=== PATIENT | female | born 1985 | race Caucasian/White ===

== ENCOUNTER 2021-11-03 11:57 | Outpatient (CLI) | payer MEDICAID, SELFPAY ==
[2021-11-04 23:13] LABS: Rapid Plasma Reagin (RPR) Non Reactive (Non Reactive)
== END 2021-11-03 11:58 | disposition home or self-care (01) ==
PROVIDERS: Visit Provider Obstetrics & Gynecology
DX: Z34.93 Encounter for supervision of normal pregnancy, unspecified, third trimester (principal); Z3A.29 29 weeks gestation of pregnancy
CPT/HCPCS: 86592; 87086

== ENCOUNTER 2021-12-14 08:43 | Outpatient (CLI) | payer MEDICAID, SELFPAY ==
[2021-12-14 08:56] LABS: Glucose Fasting Check 80 mg/dl (60-115)
[2021-12-14 13:18] LABS: Glucose 1 Hour Gest 137 mg/dl (70-180)
[2021-12-14 13:18] LABS: Glucose GTT-Gestational 3 Hr 86 mg/dl (70-140)
== END 2021-12-14 08:44 | disposition home or self-care (01) ==
LOC: NFLDREF 08:43
PROVIDERS: Visit Provider Obstetrics & Gynecology
DX: Z34.90 Encounter for supervision of normal pregnancy, unspecified, unspecified trimester (principal)
CPT/HCPCS: 82951; 82952

== ENCOUNTER 2021-12-19 12:09 | Outpatient (CLI) | payer MEDICAID, SELFPAY ==
[2021-12-19 14:58] LABS: Amphetamine Screen Urine Negative (Negative); Barbiturate Screen Urine Negative (Negative); Benzodiazepines Screen Urine Negative (Negative); Cannabinoid Screen Urine Negative (Negative); Cocaine Screen Urine Negative (Negative); Methadone Screen Urine Negative (Negative); Methamphetamines Screen Urine Negative (Negative); Opiate Screen Urine Negative (Negative); Oxycodone Screen Urine Negative (Negative); Phencyclidine Screen Urine Negative (Negative); Tricyclic Antidepressant Urine Negative (Negative)
[2021-12-20 13:48] LABS: Strep B DNA Probe NEGATIVE (Negative)
== END 2021-12-19 12:10 | disposition home or self-care (01) ==
PROVIDERS: Visit Provider Obstetrics & Gynecology
DX: Z34.93 Encounter for supervision of normal pregnancy, unspecified, third trimester (principal); Z3A.35 35 weeks gestation of pregnancy
CPT/HCPCS: 80306; 87081; 87653

== ENCOUNTER 2021-12-29 09:47 | Outpatient (CLI) | payer MEDICAID, SELFPAY ==
--- NOTE | 2021-12-29 09:45 | CRLHL7_ITS ---
For Patients: As a result of the Century Cures Act, medical imaging exams and procedure reports are released immediately into your electronic medical record. You may view this report before your referring provider. If you have questions, please contact your health care provider. INDICATION: Third trimester scan, evaluate growth. SMALL FOR GESTATIONAL AGE COMPARISON: 09/01/2021 TECHNIQUE: Real time singh scale imaging of the fetus was performed as well as color Doppler and spectral Doppler analysis of the umbilical artery. FINDINGS: Sonographic imaging demonstrates a single living intrauterine gestation. Fetus demonstrates a regular cardiac rate of 139 beats per minute. Fetus has a vertex position. The placenta lies posteriorly. Amniotic fluid volume appears normal and there is a single deepest vertical pocket: 5.4 cm. The estimated weight is 3102gm which lies at the 58th %. On the prior OB ultrasound exam dated 09/01/2021 the estimated weight was at the 31st%. BPD 84th percentile. HC 82nd percentile. AC 68th percentile. FL 13th percentile. The HC/AC ratio measures 1.03 range (0.91-1.05). IMPRESSION: Sonographic gestational age 37 weeks 4 days and sonographic due date 01/15/2022. Sonographic age 4 days ahead of the clinical age. Estimated weight 58th percentile. Abdominal circumference 68th percentile. Dictated by Chuck Fuentes MD @ 12/29/2021 11:28:02 AM (Electronically Signed)
== END 2021-12-29 09:48 | disposition home or self-care (01) ==
PROVIDERS: Visit Provider Obstetrics & Gynecology
DX: O36.5930 Maternal care for other known or suspected poor fetal growth, third trimester, not applicable or unspecified (principal); Z3A.37 37 weeks gestation of pregnancy
CPT/HCPCS: 76816

== ENCOUNTER 2022-01-12 07:18 | Inpatient (IN) | payer MEDICAID, SELFPAY ==
[2022-01-12] VITALS (49 sets, daily range): BP systolic 93–137; BP diastolic 52–79; PULSE 68–100; RESP 18; TEMP 36.7–37.2; O2SAT 100; BMI 33.5
[2022-01-12] MEDS: miSOPROStoL 25 MCG/0.25 TABLET VAGINAL ×2 (08:21→11:44)
[2022-01-12 09:53] LABS: SARS PCR* Negative SARS-CoV-2 (Negative)
[2022-01-12] MEDS: LACTATED RINGERS 1000 ML 1,000 ML 735 ML IV (13:06)
[2022-01-12] MEDS: LIDOCAINE 2% (PF) 5 ML VIAL EPIDURAL ×2 (13:51→22:15)
[2022-01-12] MEDS: ROPIVACAINE 0.2% 100 ml 100 ML 12 MG EPIDURAL ×2 (13:51→20:26)
--- NOTE | 2022-01-12 14:14 | P.ANBPRC_ITS ---
[facility] Medical History (Updated 01/02/22 @ 15:53 by Mellissa Mora MD) Abnormal glucose tolerance test (GTT) Delivery normal Encounter for screening examination for sexually transmitted disease Encounter for supervision of other normal , third trimester First trimester bleeding GERD (gastroesophageal reflux disease) Headache History of cholecystitis Meconium stained amniotic fluid, delivered, current hospitalization Normal delivery at term care following vaginal delivery Small for dates fetus [id number] fetus, third trimester Smoker (02/13/12) Subchorionic hematoma in first trimester Threatened Surgical History (Updated 11/03/21 @ 17:10 by Mellissa Mora MD) History of laparoscopic cholecystectomy (08/11/21) History of third molar tooth extraction Family History (Updated 10/28/21 @ 10:49 by Frantz Thornton) Father Alcoholism Diabetes Other GERD (gastroesophageal reflux disease) Social History (Updated 11/03/21 @ 17:11 by Mellissa Mora MD) Narrative: Single mother Non-smoker Employment: [employer] Smoking Status: Never smoker Meds Home Medications and Allergies Home Medications Medication Instructions Recorded Confirmed Type docosahexaenoic acid 200 mg 200 mg PO DAILY 11/03/21 01/12/22 History capsule ( DHA) Allergies Allergy/AdvReac Type Severity Reaction Status Date / Time No Known Allergies Allergy Verified 01/12/22 12:32 Results Labs Labs: Laboratory Results - last 24 hr 01/12/22 08:55 SARS-CoV-2 (PCR) Negative SARS-CoV-2 Vital Signs Vital Signs: Last Vital Signs Temp 98.1 F 01/12/22 07:52 Pulse 85 01/12/22 14:09 Resp 18 01/12/22 07:52 BP 110/60 01/12/22 14:09 Pulse Ox 100 01/12/22 14:00 Weight: 87.362 kg Height: 161.29 cm Anesthesia Procedures Epidural Insertion Patient Location: OB Start Time: 13:15 Stop Time: 14:15 Start Date: 01/12/22 Stop Date: 01/12/22 Performed By: Yeimi Jansen Preanesthetic Checklist: IV checked, site marked, risks and benefits discussed, monitors and equipment checked, pre-op evaluation, timeout performed and anesthesia consent Prep: chlorhexidine gluconate Monitoring: blood pressure monitoring, continuous pulse oximetry and heart rate Approach: midline Vertebral Space: lumbar (1-5) Epidural Technique: DEREJE saline Needle Type: Tuohy needle Injection Technique: continuous catheter Needle gauge: 17 Needle Length (cm): 10 cm Needle Insertion Depth (cm): 7 Catheter Gauge: 19 Catheter Type: multi-orifice Catheter at skin depth (cm): 15 Test Dose Result: negative and lidocaine 1.5% with epinephrine 1 to 200,000
[2022-01-12] MEDS: LACTATED RINGERS 1000 ML 1,000 ML 200 ML IV ×2 (15:36→20:56)
--- NOTE | 2022-01-12 16:23 | P.OBHP_ITS ---
OB - H&P: HPI Labor/Induction History of Present Illness Time Seen by Provider: 08:00 Date Seen: 01/12/22 Chief Complaint: The patient is a 36 year old 6 para 3023 at 39 weeks 0 days, who presents for elective induction of labor. Patient was 2/25/-2 on admission. No regular contractions. Denies LOF. She was counseled by Dr. Guero Davis yesterday and myself again today that there is Pitocin shortage. We will use misoprostol and AROM as our induction method. She asked about tubal ligation however she did not sign the Medicaid the sterilization consent form as she did not know about it. She was initially very upset but understands that I can not perform the procedure without the appropriate protocol being followed. We discussed other options for reliable control methods. She states that she will think about them later. Miso#1 was placed at approx 8:30. She remained unchanged after 3 hours Miso#2 was placed at approx 11:30. Patient is comfortable w/ epidural and barak regularly every 2-3 minutes. She was AROM at 1615 when patinet was noted to be 4/50/-2 Vital signs: Per electronic medical record. EFM: Baseline 130s, positive accelerations, rare decelerations, moderate variability, reactive. [place]: Contractions every 2-3 minutes. Patient still in latent labor. She is barak frequently and was reporting 7 to 8/10 pain prior to epidural. Chief complaint: Maternity : 6 Para: 3 Narrative: Cat Rodríguez is a 36 year old female Meds Home Medications and Allergies Home Medications Medication Instructions Recorded Confirmed Type docosahexaenoic acid 200 mg 200 mg PO DAILY 11/03/21 01/12/22 History capsule ( DHA) Allergies Allergy/AdvReac Type Severity Reaction Status Date / Time No Known Allergies Allergy Verified 01/12/22 12:32 OB - H&P: Exam Physical Exam: Vital signs: Temp Pulse Resp BP Pulse Ox 98.1 F 71 18 107/57 L 100 01/12/22 07:52 01/12/22 16:11 01/12/22 07:52 01/12/22 16:11 01/12/22 14:00 OB - Problem Based A/P Additional Plan (1) Abnormal glucose tolerance test (GTT): Status: Acute (2) Headache: Status: Acute (3) GERD (gastroesophageal reflux disease): Status: Acute (4) Persistent insomnia: Status: Acute (5) Neck pain: Status: Acute (6) Mild traumatic brain injury: Status: Acute (7) Attention deficit hyperactivity disorder (ADHD): Status: Acute (8) Arthropathy of lumbosacral facet joint: Status: Acute (9) Arnold-Chiari malformation, type I: Status: Acute (10) Anxiety: Status: Acute (11) : Status: Acute Plan Expected Delivery Route/Plan Elective IOL at 39w0d: 01/12/22. Patient is having a friend fly into town from [place] to be her support person. H&P by NDP on 12/29/21 Specific Issues/Plans Blood type:?A positive Father of baby not involved. Has 3 boys: Audie Cortes Sawyer. Baby: Boy. 1.? Chronic persistent insomnia. Patient reports is secondary to her Chiari Type 1 malformation at 1st OB was using trazodone 200mg qhs, recommend? tapering to DC off trazone. * 09/01/21: vistaril for persistent insomnia * 11/03/21: Increased vistaril to 100mg QHS * 11/03/2021:? Benadryl, Unisom increase restlessness.? Melatonin did not work. 2. Chiari Type 1 malformation 3. BMI 30.2 Hemoglobin A1c:? 5.0% 11/03/2021 1 hour GTT:? 153 12/14/2021 3hr GTT: All normal. 4. Laparoscopic cholecystectomy 08/11/2021 * Pathology:? Low-grade dysplasia, benign cystic duct lymph node * Has had low appetite since surgery 5. 11/03/21: Headache: Every day to every other day. Tylenol does not help * ?start magnesium supplement 400/500 mg p.o. q.h.s. 6. ? 11/03/2021 elevated 1 hour GTT: 153 * ?requested to check glucose q.i.d. rather than 3 hour GTT. (Pt later opted to complete testing, see results below) * 12/14/2021 3hr GTT: All normal. 7. 11/02/2021:? Grandfather in a car accident * ?offered SSRI: the patient declined 8. 12/19/2021:? Measuring small for dates * 12/29/2021 USN: Vtx. SDP 5.4cm.? EFW:? 3102 g, 6 lb 13 oz, 58%.? BPD 84%, HC 82%, AC 60%, FL 13%
[2022-01-12] MEDS: hydrOXYzine pamoate 25 MG CAPSULE 100 MG PO (18:07)
[2022-01-12] MEDS: OXYTOCIN 30 unit/500 ML in NS 30 UNIT/500 ML BAG IVPB (21:01)
--- NOTE | 2022-01-12 21:04 | PM.OBPNL ---
Subjective Time Seen by Provider: 21:05 Date Seen: 01/12/22 Narrative: Subjective: Patient is comfortable w/ epidural. Vital signs: Per electronic medical record. EFM: Baseline 170s, positive accelerations, occasional decelerations, moderate variability. Category II. [place]: Contractions every 2 minutes. SVE: 5 cm/75 %/-2. Patient is making slow change. Additionally, there is new onset tachycardia intially in the 160s and now mantaining in 170s. Patient feels warm on SVE but has not had an official febrile episode. However, her clinically picture is concerning for developing chorioamnionitis. Plan: 1. 500 cc Bolus initiated 2. Will start Pitocin Objective Vital Signs: Last Vital Signs Temp 98.3 F 01/12/22 19:26 Pulse 73 01/12/22 21:00 Resp 18 01/12/22 07:52 BP 109/55 L 01/12/22 21:00 Pulse Ox 100 01/12/22 14:00
[2022-01-12] MEDS: ONDANSETRON 2 MG/ML inj 4 MG IV (23:15)
[2022-01-13] VITALS (22 sets, daily range): BP systolic 97–133; BP diastolic 53–88; PULSE 57–200; RESP 16–18; TEMP 36.4–37; O2SAT 97
[2022-01-13] MEDS: LACTATED RINGERS 1000 ML 1,000 ML 200 ML IV (00:09)
[2022-01-13] MEDS: ROPIVACAINE 0.2% 100 ml 100 ML 12 MG EPIDURAL (01:14)
--- NOTE | 2022-01-13 02:56 | PM.OBPRCVD ---
Procedure Delivery date: 01/13/22 Procedure Done: [employer] Procedure Details: The patient is a 36 year-old G 6 P 3023 admitted on January 12 at 39 and 0/7 weeks gestation for induction of labor. AROM occurred at 1600 on 01/12 with clear fluid. Labor Analgesia: Epidural Pitocin: Yes Labor onset: 01/12 at 1900 Complete: 01/13 at 0120 Pushin/7 at 0122 heart tones during second stage were cat II with intermittnent lated and variables as during . At 0230 a viable male infant delivered in vertex OA presentation over intact perineum via spontaneous vaginal delivery. Infant was placed on maternal abdomen. Cord was clamped and cut after pulsation no longer noted. Nose and mouth were bulb suctioned. Infant weight: Pending. 6 at 1 minute and 8 at 5 minutes. Shoulder dystocia: No. Nuchal cord: Yes/1 loop, easily reduced . Placenta delivered spontaneously and complete at 0240 with a 3 vessel cord. Complications: None. Mother and infant were stable after delivery. Laceration(s): None. Estimated blood loss: 100 mL. Sponge and needles counts are correct. Mother and were stable at the time of this note. Events: Labor Induction Induction method: per misoprostol protocol OB Vag Delivery Procedures Additional Procedures ECV: No Cook Catheter Insertion: No NST: Yes D&C: No Laceration Repair: No Tubal Ligation : No Other: No
[2022-01-13] MEDS: ACETAMINOPHEN 500 MG TABLET 1000 MG PO ×2 (03:32→10:22)
[2022-01-13] MEDS: IBUPROFEN 600 MG TABLET PO ×2 (08:14→15:46)
--- NOTE | 2022-01-13 08:50 | P.OBPN_ITS ---
OB - PN:Subj Subjective Time Seen by Provider: 08:51 Date Seen: 01/13/22 Interval history: HOSPITAL COURSE: Patient is a 36 year old, G 4 now P for admitted on 01/12/2022 at 39 Weeks, 0 Days gestation for elective induction of labor. She had an uncomplicated vagin al. She delivered a viable male . She is breast and bottle feeding. the patient has done well. Vitals have been stable. She has remained afebrile. She desires to be discharged home by 6 hours . Vital Signs: See EMR Discharge Examination GENERAL APPEARANCE: normal affect, alert, no distress MOOD: appropriate CHEST: clear to auscultation and percussion HEART: regular rate and rhythm ABDOMEN: soft, non-tender the uterine fundus is 1 cm Below Umbilicus, Midline and is appropriate for the stage of recovery. PERINEUM: mild edema of the perineum, there is a Periurethral Laceration [] degree that is healing well. EXTREMITIES: normal and no edema Discharge Criteria patient is ambulating without assistance, urinating without difficulty, tolerating a regular diet without n/v, and with [adequate pain control] with po medications. She is normotensive. Disposition: Home/Self Care She is requesting discharge home. OB - PN: Obj Exam Physical Exam: Vital signs: Temp Pulse Resp BP Pulse Ox 98.3 F 79 18 118/70 100 01/13/22 02:13 01/13/22 04:42 01/12/22 07:52 01/13/22 04:42 01/12/22 14:00 OB - PN: Obj Data Labs Labs: Laboratory Results - last 24 hr 01/12/22 08:55 SARS-CoV-2 (PCR) Negative SARS-CoV-2 OB - PN: A/P Vaginal Delivery Assessment and Plan (1) Abnormal glucose tolerance test (GTT): Status: Acute (2) Headache: Status: Acute (3) GERD (gastroesophageal reflux disease): Status: Acute (4) Persistent insomnia: Status: Acute (5) Neck pain: Status: Acute (6) Mild traumatic brain injury: Status: Acute (7) Attention deficit hyperactivity disorder (ADHD): Status: Acute (8) Arthropathy of lumbosacral facet joint: Status: Acute (9) Arnold-Chiari malformation, type I: Status: Acute (10) Anxiety: Status: Acute (11) : Status: Acute
[2022-01-13] MEDS: DOCUSATE SODIUM 100 MG CAPSULE PO (08:53)
== END 2022-01-13 17:22 | disposition home or self-care (01) | DRG 560 ==
PROVIDERS: Admitting Provider Obstetrics & Gynecology; PCP Physician Assistant Medical; Visit Provider Obstetrics & Gynecology
DX: O99.814 Abnormal glucose complicating childbirth (principal); O76 Abnormality in fetal heart rate and rhythm complicating labor and delivery; G93.5 Compression of brain; Z37.0 Single live birth; R51.9 Headache, unspecified; K21.9 Gastro-esophageal reflux disease without esophagitis; M54.2 Cervicalgia; O99.344 Other mental disorders complicating childbirth; F90.9 Attention-deficit hyperactivity disorder, unspecified type; F51.04 Psychophysiologic insomnia; F41.9 Anxiety disorder, unspecified; M47.816 Spondylosis without myelopathy or radiculopathy, lumbar region; Z3A.39 39 weeks gestation of pregnancy
CPT/HCPCS: 01967; 59200; 87635; A9270; J2405; J2795; J7120

== ENCOUNTER 2023-01-24 21:21 | Emergency (ER) | payer OTHER, SELFPAY ==
--- NOTE | 2023-01-24 22:38 | W.ED.CHARTNO ---
ED Chart Note Chart Note Details Date: 01/24/23 Details: Patient left without being seen. No provider saw the patient
== END 2023-01-24 22:18 | disposition left against medical advice (07) ==
PROVIDERS: Emergency Provider Student in an Organized Health Care Education/Training Program; PCP Physician Assistant Medical
DX: Z53.21 Procedure and treatment not carried out due to patient leaving prior to being seen by health care provider (principal)

== ENCOUNTER 2024-01-01 11:20 | Outpatient (CLI) | payer OTHER, SELFPAY ==
--- OUTSIDE RECORDS SUMMARY | 2024-01-05 18:14 | XMS_ITS | Clinical Summary ---
Author Organization [facility] Address [address] [place] [id number] Care Team Providers Care Lang Interpreter Name Role Phone None Reported, Pcp Primary Care Provider Unavail able Source Comments Patient records contain information from all sites at [facility]. For routine questions regarding patient records, call [phone] during business hours, M-F 8:00 AM - 5:00 PM Central Time. Record requests for emergency care only can be directed to [phone] at any time.[facility] Allergies No known active allergies Medications Medication Sig Dispensed Refills Start Date End Date Status traZODone (DESYREL) 50 mg tablet Take 1-3 tablets by mouth at bedtime. 06/05/2017 Active HYDROCODONE-ACETAMINOP HEN ORAL Take 1 tablet by mouth. 08/04/2022 Active amphetamine-dextroamph etamine (Adderall XR) 20 mg 24 hr capsule Take 20 mg by mouth. 08/04/2022 Active acetaminophen (TYLENOL) 500 mg tablet Take 1,000 mg by mouth every 6 (six) hours as needed for pain. Active aspirin-acetaminophen- caffeine (EXCEDRIN MIGRAINE) 250-250-65 mg per tablet Take 1 tablet by mouth every 6 (six) hours as needed for pain. 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 Pain Chest Atypical (Primary Dx); Pleurisy; Nausea Discharge Disposition: Home or Self Care from Last 3 Months Immunizations Name Administration Dates Next Due Td Preservative Free (TENIVAC, DECAVAC) 09/07/19 18 Tdap 05/18/2016,10/30/2014 influenza vaccine quad (FLUZ ONE/FLUARIX) (6 months and older)(PF) 02/20/2018,05/18/2016 Social History Tobacco Use Types Packs/Day Years Used Date Smoking Tobacco: Never Smokeless Tobacco: Never Tobacco Cessation:Counseling Given: Not Answered Alcohol Use Standard Drinks/Week Comments Yes 0 (1 standard drink = 0.6 oz pur e alcohol) Occasional Nutrition Answer Date Recorded Nutrition: EVOO Fat Source 13 11/03 Nutrition: Servings of Fruits/Vegetables per Day Not on file 11/04/2019 Dental Answer Date Recorded Dental: Regular Dentist Unknown 06/11/19 21 Sex and Gender Information Value Date Recorded Sex Assigned at Not on file Gender Identity Not on file Sexual Orientation Not on file Last Filed Vital Signs Vital Sign Reading Time Taken Comments Blood Pressure 121/73 11/05/2023 7:00 PM CDT Pulse 64 11/05/2023 7:00 PM CDT Temperature 36.7 ??C (98.1 ??F) 11/05/2023 5:07 PM CD T Respiratory Rate 19 11/05/2023 7:00 PM CDT Oxygen Saturation 100% 11/05/2023 7:00 PM CDT Inhaled Oxygen Concentration - - Weight 72.9 kg (160 lb 11.5 oz) 11/05/2023 5:02 PM CDT Height 162.4 cm (5' 3.94) 06/05/2017 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 Body Mass Index 27.64 06/05/2017 10:04 AM STAGECRAFT PROFESSOR Plan of Treatment Health Maintenance Due Date Last Done Comments HIV Screening 1987 Hepatitis C Screening 1987 Lipid (Cholesterol) Screening 1987 Hepatitis B Vaccines (1 of 3 - 19+ 3-dose series) 08/01/2006 Cervical Cancer Screening 09/12/20192016, 06/19/2016 (Performed elsewhere) Depression Screening (Annual PHQ-2) 04/09/2023 COVID-19 Vaccine ( - 2023-2 5 season) 2023 Influenza Vaccine (#1) 2024 8, 05/18/2016 DTaP,Tdap,and Td Vaccines (4 - Td or Tdap) 09/07/2027 09/06/2017, 05/18/2016, 10/30/2014 HPV Vaccines Aged Out No longer eligi ble based on patient's age to complete this topic Pneumococcal vaccine (0-64 years) Aged Out No longer eligible b ased on patient's age to complete this topic Procedures Procedure Name Priority Date/Time Associated Diagnosis Comments DX CHEST PORTABLE 1 VIEW RAD - Semiurgent (Fast; most ED patients; some inpatients) 11/05/2023 5:43 PM CDT D-DIMER, P STAT 11/05/2023 5:33 PM CDT TROPONIN T, BASELINE, 5TH GEN, P STAT 11/05/2023 5:33 PM CDT LIPASE, S/P STAT 11/05/2023 5:33 PM CDT COMPREHENSIVE METABOLIC PANEL, S/P STAT 11/05/2023 5:33 PM CDT CBC WITH DIFFERENTIAL, B STAT 11/05/2023 5:33 PM CDT TEST, POCT, U (LAB) STAT 11/05/2023 5:31 PM CDT ECG STAT 11/05/2023 5:01 PM CDT from Last 3 Months Results * DX Chest Portable 1 View (11/05/2023 5:43 PM CDT) Anatomical Region Laterality Modality Chest, Thoracic RST LOS, Tho racic ARZ LOS, Thoracic FLA LOS N/A Digital Radiography Impressions 11/05/2023 5:58 PM CDT No consolidation, pleural effusion, or pneumothorax. Cardiomediastinal silhouette is within normal limits in size. Narrative 11/05/2023 5:58 PM CDT EXAM: DX CHEST PORTABLE 1 VIEW Procedure Note Gursahaney, Dorissa, M.D. - 11/05/2023 EXAM: DX CHEST PORTABLE 1 VIEW IMPRESSION: No consolidation, pleural effusion, or pneumothorax. Cardiomediastinalsilhouette is within normal limits in size. Roni Ocampo P.A.-C. IMG DIAGNOSTIC JACLYN GING PROCEDURES * Troponin T, Baseline with 2 Hour/6 Hour Reflex Biomarker Panel (11/05/2023 5:33 PM CDT) [facility] Troponin T, Baseline, 5th gen <6 <=10 ng/L 11/05/2023 5:59 PM CDT [facility] Blood (Blood, Venous) 11/05/2023 5:33 PM CDT 11/05/2023 5:37 PM CDT Roni Ocampo P.A.-C. LAB BLOOD TROPONIN Performing Organization Address [facility] [place] [address], [place] [address] * D-Dimer (11/05/2023 5:33 PM CDT) [facility] D-Dimer, P <220 <=500 ng/mL FEU 11/05/2023 6:21 PM CDT [facility] Comment: ----ADDITIONAL INFORMATION---- D-dimer values less than or equal to 500 ng/mL fibrinogen equivalent units (FEU) may be used in conjunction with clinical pre-test probability to exclude deep vein thrombosis (DVT) and/or pulmonary embolism (PE). Blood (Blood, Venous) 11/05/2023 5:33 PM CDT 11/05/2023 5:37 PM CDT Roni Ocampo P.A.-C. LAB BLOOD ADD-ON Performing Organization Address City/[facility]/ZIP Co de Phone Number [facility] [address] [place] [phone], [facility] CNFL [facility] in [address] [phone] * CBC with Differential, Blood (11/05/2023 5:33 PM CDT) Hemoglobin 12.6 11.6 - 15.0 g/dL 11/05/2023 5:46 PM CDT [facility] Hematocrit 37.2 35.5 - 44.9 % 11/05/2023 5:46 PM CDT [facility] Erythrocytes 4.29 3.92 - 5.13 x10(12)/L 11/05/2023 5:46 PM CDT [facility] MCV 86.7 78.2 - 97.9 fL 11/05/2023 5:46 PM CDT [facility] RBC Distrib Width 13.2 12.2 - 16.1 % 11/05/2023 5:46 PM CDT [facility] Platelet Count 244 157 - 371 x10(9)/L 11/05/2023 5:46 PM CDT [facility] Leukocytes 9.1 3.4 - 9.6 x10(9)/L 11/05/2023 5:46 PM CDT [facility] Neutrophils 5.80 1.56 - 6.45 x10(9)/L 11/05/2023 5:46 PM CDT [facility] Lymphocytes 2.47 0.95 - 3.07 x10(9)/L 11/05/2023 5:46 PM CDT [facility] Monocytes 0.46 0.26 - 0.81 x10(9)/L 11/05/2023 5:46 PM CDT [facility] Eosinophils 0.29 0.03 - 0.48 x10(9)/L 11/05/2023 5:46 PM CDT [facility] Basophils 0.04 0.01 - 0.08 x10(9)/L 11/05/2023 5:46 PM CDT [facility] Blood (Blood, Venous) 11/05/2023 5:33 PM CDT 11/05/2023 5:37 PM CDT Roni Ocampo P.A.-C. LAB BLOOD ADD-ON [facility] [address] [place] [phone], [facility] in [address] [address] * Lipase (11/05/2023 5:33 PM CDT) Lipase, P 42 13 - 60 U/L 11/05/2023 6: 01 PM CDT [facility] Blood (Blood, Venous) 11/05/2023 5:33 PM CDT 11/05/2023 5:37 PM CDT Roni Ocampo P.A.-C. LAB BLOOD ADD-ON [facility] [address] [place] [phone], [facility] in [address] [address] * Comprehensive Metabolic Panel (11/05/2023 5:33 PM CDT) Potassium, P 3.7 3.6 - 5.2 mmol/L 11/05/2023 6:01 PM CDT [facility] Sodium, P 138 135 - 145 mmol/L 11/05/2023 6:01 PM CDT [facility] Chloride, P 107 98 - 107 mmol/L 11/05/2023 6:01 PM CDT [facility] Bicarbonate, P 24 22 - 29 mmol/L 11/05/2023 6:01 PM CDT [facility] Anion Gap, P 7 7 - 15 11/05/2023 6:01 PM CDT [facility] BUN (Blood Urea Nitrogen), P 9 6 - 21 mg/dL 11/05/2023 6:01 PM CDT [facility] Creatinine 0.97 0.59 - 1.04 mg/dL 11/05/2023 6:01 PM CDT [facility] Estimated GFR (eGFR) 78 >=60 mL/min/BS A 11/05/2023 6:01 PM CDT CN[facility] Comment: Estimated GFR calculated using the 2020 CKD_EPI creatinine equation. Calcium, Total, P 9.8 8.6 - 10.0 mg/dL 11/05/2023 6:01 PM CDT [facility] Glucose, P 96 70 - 140 mg/dL 11/05/2023 6:01 PM CDT [facility] Protein, Total, P 7.1 6.3 - 7.9 g/dL 11/05/2023 6:01 PM CDT [facility] Albumin, P 4.4 3.5 - 5.0 g/dL 11/05/2023 6:01 PM CDT [facility] Aspartate Aminotransferase (AST), P 16 8 - 43 U/L 11/05/2023 6:01 PM CDT [facility] Alkaline Phosphatase, P 65 35 - 104 U/L 11/05/2023 6:01 PM CDT [facility] Alanine Aminotransferase (ALT), P 11 7 - 45 U/L 11/05/2023 6:01 PM CDT CN[facility] Bilirubin, Total, P 1.1 0.0 - 1.2 mg/dL 11/05/2023 6:01 PM CDT [facility] Blood (Blood, Venous) 11/05/2023 5:33 PM CDT 11/05/2023 5:37 PM CDT Roni Ocampo P.A.-C. LAB BLOOD ADD-ON Performing Organization Address City/[facility]/[place] [address], [facility] [place] [address] * Test, POCT, Urine (Lab) (11/05/2023 5:31 PM CDT) Test, POCT, U Negative 11/05/2023 5:52 PM CDT [facility] Urine (Urine, Midstream) 11/05/2023 5:31 PM CDT 11/05/2023 5:38 PM CDT Roni Ocampo P.A.-C. LAB POCT ORDERABLE S - DEVICE [address] [place] [address], [facility] in [address] [address] * ECG 12 Lead (11/05/2023 5:01 PM CDT) Ventricular Rate ECG/Min 59 BPM MUSE HI Interval 140 ms MUSE QRSD Interval 92 ms MUSE QT Interval 402 ms MUSE QTC Interval 397 ms MUSE P [place] 31 degrees MUSE R [place] 36 degrees MUSE T Wave [place] 65 degrees MUSE 11/05/2023 5:01 PM CDT 11/05/2023 5:04 PM CDT Impressions MUSE - 11/05/2023 5:04 PM CDT Sinus bradycardia Otherwise normal ECG When compared with ECG of 20-Jul-2022 11:41, No significant change was found Reviewed by NONI Rushing Narrative Procedure Note Ivan Kiser M.D. - 11/05/2023 IMPRESSION: Sinus bradycardia Otherwise normal ECG When compared with ECG of 20-Jul-2022 11:41, No significant change was found Reviewed by NONI Rushing Roni Ocampo P.A.-C. ECG ORDERABLES MUSE NA from Last 3 Months Care Teams Lang Interpreter Relationship Specialty Start Date End Date None Reported, Pcp PCP - General Family Medicine 07/20/22
--- OUTSIDE RECORDS SUMMARY | 2024-01-05 18:14 | XMS_ITS | Encounter Summary ---
Author Organization [facility] Address [address] [place] [address] Care Team Providers Care Crusher Supervisor Name Role Phone None Reported, Pcp Primary Care Provider Unavail able Reason for Visit * Reason Comments Chest Pain 38 yo presents to [facility] ED via private vehicle with c/o sudden onset chest pain around noon today. Patient was resting at the time of onset. Patient also feels that the pain makes her feel short of breath. Encounter Details Date Type Department Care Team ([facility] st Contact Info) Description 11/05/2023 5:00 PM CDT - 11/05/2023 7:08 PM CDT Emergency [facility] [address] [place] [phone] Roni Ocampo, PPeteyAPetey-C. 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 - 11/05/2023 6:16 PM CDT Zofran as needed for nausea and vomiting Tylenol 1000 mg every 8 hours as needed for pain. Ibuprofen 600 mg every 8 hours as needed for pain. Please take with food. Do not exceed 3000 mg of Tylenol daily. Do not exceed 1800 mg of Ibuprofen daily. It's ok to take both at the same time. You were examined and treated today in the Emergency Department (ED) on an emergency basis. This visit is not a substitute for comprehensive and ongoing medical care. In most cases, you must let yourprimary physician evaluate you again. Call your doctor today to advise them of your ED visit and arrange for out patient follow up. Tell your doctor about any new or lasting problems. After you leavethe ED today, please follow the instructions provided to you. Return to the Emergency Department for new, worsening, or persistent symptoms. * Attachments The following attachments cannot be sent through Care Everywhere. * Pleurisy Hawz-fe-Vnbg (Omani) * Nonspecific Chest Pain Adult Ussy-eb-Kjfg (Omani) documented in this encounter Medications at Time of Discharge Medication Sig Dispensed Refills Start Date End Date acetaminophen (TYLENOL) 500 mg tablet Take 1,000 mg by mouth every 6 (six) hours as needed for pain. amphetamine-dextroampheta mine (Adderall XR) 20 mg 24 hr capsule Take 20 mg by mouth. 08/04/2022 fuscnrt-haikhxiecerhy-jbf feine (EXCEDRIN MIGRAINE) 250-250-65 mg per tablet Take 1 tablet by mouth every 6 (six) hours as needed for pain. HYDROCODONE-ACETAMINOPHEN ORAL Take 1 tablet by mouth. 08/04/2022 traZODone (DESYREL) 50 mg tablet Take 1-3 tablets by mouth at bedtime. 06/05/2017 ondansetron ODT (Zofran-ODT) 4 mg disintegrating tablet Dissolve 1 tablet (4 mg total) in the mouth every 8 (eight) hours as needed for nausea or vomiting for up to 10 days. 20 tablet 11/05/2023 11/15/2023 documented as of this encounter ED Notes * Roni Ocampo P.A.-C. - 11/05/2023 5:33 PM CDT SUBJECTIVE CHIEF COMPLAINT/REASON FOR VISIT Chest Pain (38 yo presents to the ED via private vehicle with c/o sudden onset chest pain around noon today. Patient was resting at the time of onset. Patient also feels that the pain makes her feel short of breath. ) HISTORY OF PRESENT ILLNESS Cat Rodríguez is a 38 y.o. female presents to [facility] Emergency Department requesting evaluation for chest pain. Past medical history notable for but not limited to malformation Chiari type 1, astigmatism regular, ADHD, GERD, insomnia. Reports prior cholecystectomy. Around noon today patient was at rest and developed sudden onset midsternal pleuritic chest pain. No hemoptysis. Notes mild dyspnea. Some radiation into back/right shoulder. No neck pain. No extremity pain. No abdominal pain. Notes mild nausea. No history of PE or DVT. No recent prolonged immobilization. No recent surgery. No swelling in lower extremities. No fevers. At baseline for health prior to symptoms. Low suspicion for . History provided by: Patient, medical records and significant other high school library media specialist needed/used: no REVIEW OF SYSTEMS Constitutional: Negative for fever. Respiratory: Negative for shortness of breath. Cardiovascular: Positive for chest pain. Gastrointestinal: Negative for abdominal pain and vomiting. Neurological: Negative for headaches. OBJECTIVE Initial Vitals Temperature 11/05/23 1707 36.7 ??C Pulse Rate 11/05/23 1707 66 Heart Rate 11/05/23 1707 66 Resp Rate 11/05/23 1707 12 Blood Pressure 11/05/23 1707 101/64 SpO2 11/05/23 1707 96 % Pain Score 11/05/23 1701 7 PHYSICAL EXAMINATION Constitutional: Nursing note and vitals reviewed. She appears not lethargic. No distress. HENT: Head: Normocephalic and atraumatic. No signs of injury. Nose: Nose normal. Mouth/Throat: Oropharynx is clear and moist. Mucous membranes are moist. Eyes: Conjunctivae and EOM are normal. Pupils are equal, round, and reactive to light. Cardiovascular: Normal rate. Capillary refill: takes less than 3 secondsEdema: no edema noted Pulmonary/Chest: Effort normal. No tachypnea. No respiratory distress. Abdominal: Soft. exhibits no distension and no mass. There is no abdominal tenderness. There is no rebound and no guarding. Musculoskeletal: General: Tenderness (mild tenderness over anterior mid chest with palpation) present. No deformity.Normal range of motion. Cervical back: Normal range of motion. Neurological: Alert and oriented to person, place, and time. She is not disoriented. She exhibits normal muscle tone. Coordination normal. Skin: Skin is warm, dry and normal color. She is not diaphoretic. Psychiatric: She has a normal mood and affect. Behavior is normal. ASSESSMENT/PLAN Assessment and Plan The patient presents to the ED for evaluation of chest pain. Patient is awake, alert, oriented and appropriate to questions who is nontoxic or ill-appearing. Initial presentation to ED notable for an afebrile 38-year-old female with vital signs within normal limits. Secondary to patient who developed sudden onset substernal pleuritic chest pain at noon todaywith some radiation into back/right shoulder plan was made to proceed with baseline labs, abdominal labs, troponin, dimer, EKG, chest x-ray. Independent review of EKG shows normal sinus rhythm without any significant ST elevation or depression or ischemic T-wave changes. Social Determinants Impacting Care (literacy, employment, housing, substance abuse): None Tests/prescriptions considered and not done: None Admission Consideration: No Differential Diagnoses Include: Pleurisy, costochondritis, pneumothorax, chest wall muscle strain, choledocholithiasis, pancreatitis, PE, ACS, arrhythmia/dysrhythmia, anxiety See ED Course for diagnostics, disposition and further medical decision making.. HEART Pathway Score Does this patient have STEMI, ischemic ECG changes, coronary artery disease?: No Age: <45 Age Score: 0 Symptoms: Pain is pinpoint/well localized, Nausea or vomiting Symptoms Score: 1 Risk Factors: None of the above Risk Factors Score: 0 ECG: ECG normal ECG Score: 0 HEART Pathway Score: 1 ED Course as of 11/05/231917Nov 05, 2023 1753 Test, POCT, U: Negative 1850 No improvement after the GI cocktail. Patient has some baseline nausea and would like some Zofran for as needed use. 1900 Troponin T, Baseline, 5th gen: <6 Technically symptom onset was around 5 hours prior to testing and therefore a 2 hour troponin wouldbe indicated to rule out acute coronary syndrome. Heart pathway score is 1. Overall low suspicion for ACS is very low at this time. Patient requesting to be discharged at this time without obtaining 2 hour troponin which we can notdefinitively rule out acute coronary syndrome however patient acknowledges this and overall low suspicion in general and will return for any new or worsening symptoms. I encourage follow up with their primary care provider as indicated. I also encourage to return emergency department for worsening symptoms or any other concerns they feel requires further evaluation. This plan of discharge and follow-up included discussion of all test results in detail with opportunity to ask questions during discharge process. At this time there are no further questions regarding this plan and discussion. I will discharge them home in stable condition. Final Diagnoses: as of 11/05/231917 Pain Chest Atypical Pleurisy Nausea Roni Ocampo, Pio. 11/05/231917 documented in this encounter Plan of Treatment Not on file documented as of this encounter Procedures Procedure Name Priority Date/Time Associated Diagnosis Comments DX CHEST PORTABLE 1 VIEW RAD - Semiurgent (Fast; most ED patients; some inpatients) 11/05/2023 5:43 PM CDT TROPONIN T, BASELINE, 5TH GEN, P STAT 11/05/2023 5:33 PM CDT D-DIMER, P STAT 11/05/2023 5:33 PM CDT CBC WITH DIFFERENTIAL, B STAT 11/05/2023 5:33 PM CDT LIPASE, S/P STAT 11/05/2023 5:33 PM CDT COMPREHENSIVE METABOLIC PANEL, S/P STAT 11/05/2023 5:33 PM CDT TEST, POCT, U (LAB) STAT 11/05/2023 5:31 PM CDT ECG STAT 11/05/2023 5:01 PM CDT documented in this encounter Results * DX Chest Portable 1 View (11/05/2023 5:43 PM CDT) Anatomical Region Laterality Modality Chest, Thoracic RST LOS, Tho racic ARZ LOS, Thoracic FLA LOS N/A Digital Radiography Impressions 11/05/2023 5:58 PM CDT No consolidation, pleural effusion, or pneumothorax. Cardiomediastinal silhouette is within normal limits in size. Narrative 11/05/2023 5:58 PM CDT EXAM: DX CHEST PORTABLE 1 VIEW Procedure Note Kathy Loco M.D. - 11/05/2023 EXAM: DX CHEST PORTABLE 1 VIEW IMPRESSION: No consolidation, pleural effusion, or pneumothorax. Cardiomediastinalsilhouette is within normal limits in size. Roni Ocampo P.A.-C. IMC[facility]ST[facility] JACLYN GING PROCEDURES * D-Dimer (11/05/2023 5:33 PM CDT) D-Dimer, P <220 <=500 ng/mL FEU 11/05/2023 6:21 PM CDT CNFL Comment: ----ADDITIONAL INFORMATION---- D-dimer values less than or equal to 500 ng/mL fibrinogen equivalent units (FEU) may be used in conjunction with clinical pre-test probability to exclude deep vein thrombosis (DVT) and/or pulmonary embolism (PE). Blood (Blood, Venous) 11/05/2023 5:33 PM CDT 11/05/2023 5:37 PM CDT Roni Ocampo P.A.-C. LAB BLOOD ADD-ON [facility] [address] [place] [address], [address] [address] * Troponin T, Baseline with 2 Hour/6 Hour Reflex Biomarker Panel (11/05/2023 5:33 PM CDT) Troponin T, Baseline, 5th gen <6 <=10 ng/L 11/05/2023 5:59 PM CDT [facility] Blood (Blood, Venous) 11/05/2023 5:33 PM CDT 11/05/2023 5:37 PM CDT Roni Ocampo P.A.-C. LAB BLOOD TROPONIN Performing Organization Address City/[facility]/ZIP Co de Phone Number [facility] [address] [place] [address], [address] [address] * Lipase (11/05/2023 5:33 PM CDT) Lipase, P 42 13 - 60 U/L 11/05/2023 6: 01 PM CDT [facility] Blood (Blood, Venous) 11/05/2023 5:33 PM CDT 11/05/2023 5:37 PM CDT Roni Ocampo P.A.-C. LAB BLOOD ADD-ON [facility] [address] [place] [address], [address] [address] * Comprehensive Metabolic Panel (11/05/2023 5:33 PM CDT) Pathologist [facility] Potassium, P 3.7 3.6 - 5.2 mmol/L [...] CDT Roni Ocampo P.A.-C. LAB BLOOD ADD-ON [facility] [address] [place] [address], [facility] CNFL [facility] [place] [address] * CBC with Differential, Blood (11/05/2023 5:33 [...] P.A.-C. LAB BLOOD ADD-ON Performing Organization Address [facility] Co de Phone Number [facility] [address] [place] [address], [address] [address] * Test, POCT, Urine (Lab) (11/05/2023 5:31 PM CDT) Test, POCT, U Negative 11/05/2023 5:52 PM CDT [facility] Urine (Urine, Midstream) 11/05/2023 5:31 PM CDT 11/05/2023 5:38 PM CDT Roni Ocampo P.A.-C. LAB POCT ORDERABLE S - DEVICE Performing Organization Address [facility] Co de Phone Number [facility] [address] [place] [address], [address] [address] * ECG 12 Lead (11/05/2023 5:01 PM CDT) Ventricular Rate ECG/Min 59 BPM MUSE [place] Interval 140 ms MUSE QRSD Interval 92 ms MUSE QT Interval 402 ms MUSE QTC Interval 397 ms MUSE P [place] 31 degrees MUSE R [place] 36 degrees MUSE T Wave [place] 65 degrees MUSE 11/05/2023 5:01 PM CDT [...] Roni Ocampo P.A.-C. ECG ORDERABLES MUSE NA documented in this encounter Visit Diagnoses Diagnosis Pain Chest Atypical- Primary Pleurisy Nausea documented in this encounter Administered Medications Inactive Administered Medications - up to 3 most recent administrations Medication Order MAR Action Action Date Dose Rate Site acetaminophen tablet 1,000 mg (TylenoL) 1,000 mg, oral, Once, On Sun11/05/23 at 1724, For 1 dose Given 11/05/2023 5:33 PM CDT 1,000 mg ketorolac injection 15 mg (ToradoL) 15 mg, intramuscular, Once, On Sun11/05/23 at 1724, For 1 dose, Adult IV push rate: Over 15 seconds. Peds IV push rate: Over 1 minute. Doses > 15 mg IV/IM are discouraged due to lack of additional analgesic benefit. Given 11/05/2023 5:33 PM CDT 15 mg Left Deltoid lidocaine viscous 2 % 15 mL, alum-mag hydroxide-simeth 30 mL suspension 45 mL, oral, Once, On Sun11/05/23 at 1845, For 1 dose, Mix ingredients prior to administration Given 11/05/2023 6:48 PM CDT 45 mL ondansetron ODT disintegrating tablet 4 mg (Zofran-ODT) 4 mg, oral, Once, On Sun11/05/23 at 1845, For 1 dose, When splitting ODT at bedside, handle with gloves and a pill splitter to prevent moisture contact. Given 11/05/2023 6:48 PM CDT 4 mg documented in this encounter Active and Recently Administered Medications Times are shown in CDT. Scheduled Medication Order 11/03/2023 11/04/2023 11/05/2023 acetaminophen tablet 1,000 mg (TylenoL) (COMPLETED) 1,000 mg, oral, Once, On Sun11/05/23 at 1724, For 1 dose 1733 (Given - Provid er: Keyla Pena R.N.) ketorolac injection 15 mg (ToradoL) (COMPLETED) 15 mg, intramuscular, Once, On Sun11/05/23 at 1724, For 1 dose, Adult IV push rate: Over 15 seconds. Peds IV push rate: Over 1 minute. Doses > 15 mg IV/IM are discouraged due to lack of additional analgesic benefit. 1733 (Given - Provid er: Keyla Pena R.N.) lidocaine viscous 2 % 15 mL, alum-mag hydroxide-simeth 30 mL suspension (COMPLETED) 45 mL, oral, Once, On Sun11/05/23 at 1845, For 1 dose, Mix ingredients prior to administration 184 (Given - Provid er: Keyla Pena R.N.) ondansetron ODT disintegrating tablet 4 mg (Zofran-ODT) (COMPLETED) 4 mg, oral, Once, On Sun11/05/23 at 1845, For 1 dose, When splitting ODT at bedside, handle with gloves and a pill splitter to prevent moisture contact. 1848 (Given - Provid er: Keyla Pena R.N.) documented in this encounter Care Teams Crusher Supervisor Relationship Specialty Start Date End Date None Reported, Pcp PCP - General Family Medicine 07/20/22 documented as of this encounter
--- OUTSIDE RECORDS SUMMARY | 2024-01-05 18:14 | XMS_ITS ---
Author Organization [facility] Address [address] [place] [address] Care Team Providers Care Crime Laboratory Analyst Name Role Phone Unavailable Unavailable Unavailable Surgery Details Not on file Complications Check Surgery Details section. Procedure Estimated Blood Loss Check Surgery Details section. Procedure Findings Check Surgery Details section. Procedure Specimens Taken Check Surgery Details section.
--- OUTSIDE RECORDS SUMMARY | 2024-01-05 18:14 | XMS_ITS | Referral Summary ---
Author Organization [facility] Address [address] [place] [address] Care Team Providers Care Cardiovascular Rn Name Role Phone None Reported, Pcp Primary Care Provider Unavail able Source Comments Patient records contain information from all sites at [facility]. For routine questions regarding patient records, call [phone] during business hours, M-F 8:00 AM - 5:00 PM Central Time. Record requests for emergency care only can be directed to [phone] at any time.[facility] Encounters Date Type Department Care Team Description 11/05/2023 5:00 PM CDT - 11/05/2023 7:08 PM CDT Emergency [facility] [address] [place] [phone] Roni Ocampo, MorenaADulce. 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 LAB BLOOD TROPONIN [facility] [address] [place] [address], [facility] [place] [address] * D-Dimer (11/05/2023 5:33 PM CDT) D-Dimer, [...] CDT Roni Ocampo P.A.-C. LAB BLOOD ADD-ON [facility] [address] [place] [address], [facility] in [address] [address] * CBC with Differential, Blood (11/05/2023 5:33 [...] CDT Roni Ocampo P.A.-C. LAB BLOOD ADD-ON [facility] [address] [place] [address], [place] [address] * Lipase (11/05/2023 5:33 PM CDT) Lipase, P 42 13 - 60 U/L 11/05/2023 6: 01 PM CDT CNFL Blood (Blood, Venous) 11/05/2023 5:33 PM CDT 11/05/2023 5:37 PM CDT Roni Ocampo P.A.-C. LAB BLOOD ADD-ON [facility] [address] [place] [address], [facility] CNFL [facility] in [address] [address] * Comprehensive Metabolic Panel (11/05/2023 5:33 PM [...] P.A.-C. LAB BLOOD ADD-ON Performing Organization Address [facility] Co de Phone Number [facility] [address] [place] [address], [address] [address] * Test, POCT, Urine (Lab) (11/05/2023 5:31 PM CDT) Test, POCT, U Negative 11/05/2023 5:52 PM CDT [facility] Urine (Urine, Midstream) 11/05/2023 5:31 PM CDT 11/05/2023 5:38 PM CDT Roni Ocampo P.A.-C. LAB POCT ORDERABLE S - DEVICE Performing Organization Address [facility] Co de Phone Number [facility] [address] [place] [address], [address] [address] * ECG 12 Lead (11/05/2023 5:01 PM CDT) Ventricular Rate ECG/Min 59 BPM MUSE [place] Interval 140 ms MUSE QRSD Interval 92 ms MUSE QT Interval 402 ms MUSE QTC Interval 397 ms MUSE P [place] 31 degrees MUSE R [place] 36 degrees MUSE T Wave [place] 65 degrees MUSE 11/05/2023 5:01 PM CDT [...] NA from Last 3 Months Care Teams Cardiovascular Rn Relationship Specialty Start Date End Date None Reported, Pcp PCP - General Family Medicine 07/20/22
== END 2024-01-01 11:21 | disposition home or self-care (01) ==
LOC: NFLDREF 01-05 18:09
PROVIDERS: PCP Physician Assistant Medical; Referring Provider Physician Assistant Medical; Visit Provider Physician Assistant Medical
DX: R11.2 Nausea with vomiting, unspecified (principal); R63.4 Abnormal weight loss; F51.01 Primary insomnia; R51.9 Headache, unspecified; R10.9 Unspecified abdominal pain; G89.29 Other chronic pain; R53.82 Chronic fatigue, unspecified
CPT/HCPCS: 80053; 82306; 82607; 82728; 84443

== ENCOUNTER 2024-01-14 10:56 | Outpatient (CLI) | payer OTHER, SELFPAY ==
--- OUTSIDE RECORDS SUMMARY | 2024-01-14 10:59 | XMS_ITS | Referral Summary ---
Author Organization [facility] Address [address] [place] [address] Care Team Providers Care Middle School Band Teacher Name Role Phone None Reported, Pcp Primary Care Provider Unavail able Source Comments Patient records contain information from all sites at [facility]. For routine questions regarding patient records, call [phone] during business hours, M-F 8:00 AM - 5:00 PM Central Time. Record requests for emergency care only can be directed to [phone] at any time.[facility] Encounters Date Type Department Care Team Description 11/05/2023 5:00 PM CDT - 11/05/2023 7:08 PM CDT Emergency [facility] [address] [place] [phone] Roni Ocampo, MorenaADulce. Pain Chest Atypical (Primary [...] cm (5' 3.94) 06/05/2017 1 0:04 AM LEGISLATORS Body Mass Index 27.64 06/05/2017 10:04 AM LEGISLATORS Plan of Treatment Not on file Procedures [...] CDT Roni Ocampo P.A.-C. LAB BLOOD TROPONIN [facility] [address] [place] [address], [facility] [place] [address] * D-Dimer (11/05/2023 5:33 PM CDT) D-Dimer, [...] CDT Roni Ocampo P.A.-C. LAB BLOOD ADD-ON [facility] [address] [place] [address], [facility] in [address] [address] * CBC with Differential, Blood (11/05/2023 5:33 [...] CDT Roni Ocampo P.A.-C. LAB BLOOD ADD-ON [facility] [address] [place] [address], [place] [address] * Lipase (11/05/2023 5:33 PM CDT) Lipase, P 42 13 - 60 U/L 11/05/2023 6: 01 PM CDT CNFL Blood (Blood, Venous) 11/05/2023 5:33 PM CDT 11/05/2023 5:37 PM CDT Roni Ocampo P.A.-C. LAB BLOOD ADD-ON [facility] [address] [place] [address], [facility] CNFL [facility] in [address] [address] * Comprehensive Metabolic Panel (11/05/2023 5:33 PM [...] LAB BLOOD ADD-ON Performing Organization Address [facility] Co de Phone Number [facility] [address] [place] [address], [address] [address] * Test, POCT, Urine (Lab) (11/05/2023 5:31 PM CDT) Test, POCT, U Negative 11/05/2023 5:52 PM CDT [facility] Urine (Urine, Midstream) 11/05/2023 5:31 PM CDT 11/05/2023 5:38 PM CDT Roni Ocampo P.A.-C. LAB POCT ORDERABLE S - DEVICE Performing Organization Address [facility] Co de Phone Number [facility] [address] [place] [address], [address] [address] * ECG 12 Lead (11/05/2023 5:01 PM CDT) Ventricular Rate ECG/Min 59 BPM MUSE [place] Interval 140 ms MUSE QRSD Interval 92 ms MUSE QT Interval 402 ms MUSE QTC Interval 397 ms MUSE P [place] 31 degrees MUSE R [place] 36 degrees MUSE T Wave [place] 65 degrees MUSE 11/05/2023 5:01 PM CDT [...] NA from Last 3 Months Care Teams Middle School Band Teacher Relationship Specialty Start Date End Date None Reported, Pcp PCP - General Family Medicine 07/20/22
--- OUTSIDE RECORDS SUMMARY | 2024-01-14 10:59 | XMS_ITS | Encounter Summary ---
Author Organization [facility] Address [address] [place] [address] Care Team Providers Care Maintenance Pipefitter Name Role Phone None Reported, Pcp Primary Care Provider Unavail able Reason for Visit * Reason Comments Chest Pain 38 [facility] with c/o sudden onset chest pain around noon today. Patient was resting at the time of onset. Patient also feels that the pain makes her feel short of breath. Encounter Details Date Type Department Care Team ([facility] st Contact Info) Description 11/05/2023 5:00 PM CDT - 11/05/2023 7:08 PM CDT Emergency [facility] [address] [place] [phone] Roni Ocampo, PPeteyAPetey-C. 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 * Pleurisy Hbqh-jl-Skba (Beninese) * Nonspecific Chest Pain Adult Fugj-ti-Mugt (Beninese) documented in this encounter Medications at Time of Discharge Medication Sig Dispensed Refills Start Date End Date acetaminophen (TYLENOL) 500 mg tablet Take 1,000 mg by mouth every 6 (six) hours as needed for pain. amphetamine-dextroampheta mine (Adderall XR) 20 mg 24 hr capsule Take 20 mg by mouth. 08/04/2022 yvwfuyd-kefzxlyontqee-lag feine (EXCEDRIN MIGRAINE) 250-250-65 mg per tablet [...] is a 38 y.o. female presents to [facility] Emergency Department requesting evaluation for chest pain. [...] by: Patient, medical records and significant other customer counter representative needed/used: no REVIEW OF SYSTEMS Constitutional: Negative [...] CDT Roni Ocampo P.A.-C. LAB BLOOD ADD-ON [facility] [address] [place] [id number], [address] [address] * Troponin T, Baseline with 2 Hour/6 Hour Reflex Biomarker Panel (11/05/2023 5:33 PM CDT) Troponin T, Baseline, 5th gen <6 <=10 ng/L 11/05/2023 5:59 PM CDT [facility] Blood (Blood, Venous) 11/05/2023 5:33 PM CDT 11/05/2023 5:37 PM CDT Roni Ocampo P.A.-C. LAB BLOOD TROPONIN Performing Organization Address City/[facility]/ZIP Co de Phone Number [facility] [address] [place] [phone], [address] [address] * Lipase (11/05/2023 5:33 PM CDT) Lipase, P 42 13 - 60 U/L 11/05/2023 6: 01 PM CDT [facility] Blood (Blood, Venous) 11/05/2023 5:33 PM CDT 11/05/2023 5:37 PM CDT Roni Ocampo P.A.-C. LAB BLOOD ADD-ON [facility] [address] [place] [phone], [address] [address] * Comprehensive Metabolic Panel (11/05/2023 5:33 PM CDT) Pathologist [facility] Potassium, P 3.7 3.6 - 5.2 mmol/L [...] CDT Roni Ocampo P.A.-C. LAB BLOOD ADD-ON [facility] [address] [place] [address], [facility] CNFL [facility] [place] [address] * CBC with Differential, Blood (11/05/2023 5:33 [...] P.A.-C. LAB BLOOD ADD-ON Performing Organization Address [facility] Co de Phone Number [facility] [address] [place] [address], [address] [address] * Test, POCT, Urine (Lab) (11/05/2023 5:31 PM CDT) Test, POCT, U Negative 11/05/2023 5:52 PM CDT [facility] Urine (Urine, Midstream) 11/05/2023 5:31 PM CDT 11/05/2023 5:38 PM CDT Roni Ocampo P.A.-C. LAB POCT ORDERABLE S - DEVICE Performing Organization Address [facility] Co de Phone Number [facility] [address] [place] [address], [address] [address] * ECG 12 Lead (11/05/2023 5:01 PM CDT) Ventricular Rate ECG/Min 59 BPM MUSE [place] Interval 140 ms MUSE QRSD Interval 92 ms MUSE QT Interval 402 ms MUSE QTC Interval 397 ms MUSE P [place] 31 degrees MUSE R [place] 36 degrees MUSE T Wave [place] 65 degrees MUSE 11/05/2023 5:01 PM CDT [...] contact. 1848 (Given - Provid er: Keyla Pnea R.N.) documented in this encounter Care Teams Maintenance Pipefitter Relationship Specialty Start Date End Date None Reported, Pcp PCP - General Family Medicine 07/20/22 documented as of this encounter
--- OUTSIDE RECORDS SUMMARY | 2024-01-14 10:59 | XMS_ITS ---
Author Organization [facility] Address [address] [place] [address] Care Team Providers Care Hook Puller Name Role Phone Unavailable Unavailable Unavailable Surgery Details Not on file Complications Check Surgery Details section. Procedure Estimated Blood Loss Check Surgery Details section. Procedure Findings Check Surgery Details section. Procedure Specimens Taken Check Surgery Details section.
--- OUTSIDE RECORDS SUMMARY | 2024-01-14 10:59 | XMS_ITS | Clinical Summary ---
Author Organization [facility] Address [address] [place] [address] Care Team Providers Care Digital Sales Director Name Role Phone None Reported, Pcp Primary Care Provider Unavail able Source Comments Patient records contain information from all sites at [facility]. For routine questions regarding patient records, call [phone] during business hours, M-F 8:00 AM - 5:00 PM Central Time. Record requests for emergency care only can be directed to [phone] at any time.[facility] Allergies No known active allergies Medications Medication [...] CDT - 11/05/2023 7:08 PM CDT Emergency [facility] [address] [place] [phone] Roni Ocampo, P.A.-C. 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 Blood (Blood, Venous) 11/05/2023 5:33 PM CDT 11/05/2023 5:37 PM CDT Roni Ocampo P.A.-C. LAB BLOOD TROPONIN Performing Organization Address [facility] [place] [place] [address], [place] [address] * D-Dimer (11/05/2023 5:33 PM CDT) [facility] D-Dimer, P <220 <=500 ng/mL FEU 11/05/2023 6:21 PM CDT [facility] Comment: ----ADDITIONAL INFORMATION---- D-dimer values less than or equal to 500 ng/mL fibrinogen equivalent units (FEU) may be used in conjunction with clinical pre-test probability to exclude deep vein thrombosis (DVT) and/or pulmonary embolism (PE). Blood (Blood, Venous) 11/05/2023 5:33 PM CDT 11/05/2023 5:37 PM CDT Roni Ocampo P.A.-C. LAB BLOOD ADD-ON Performing Organization Address City/[facility]/ZIP Co de Phone Number [facility] [address] [place] [phone], [facility] CNFL [facility] in [address] [address] * CBC with Differential, Blood (11/05/2023 5:33 [...] CDT Roni Ocampo P.A.-C. LAB BLOOD ADD-ON [facility] [address] [place] [address], [facility] CNFL [facility] in [address] [address] * Lipase (11/05/2023 5:33 PM CDT) Lipase, P 42 13 - 60 U/L 11/05/2023 6: 01 PM CDT CN[facility] Blood (Blood, Venous) 11/05/2023 5:33 PM CDT 11/05/2023 5:37 PM CDT Roni Ocampo P.A.-C. LAB BLOOD ADD-ON [facility] [address] [place] [address], [facility] CNFL [facility] in [address] [address] * Comprehensive Metabolic Panel (11/05/2023 5:33 PM [...] P.A.-C. LAB BLOOD ADD-ON Performing Organization Address City/[facility]/[place] [address], [facility] CNFL [facility] [place] [address] * Test, POCT, Urine (Lab) (11/05/2023 5:31 PM CDT) Test, POCT, U Negative 11/05/2023 5:52 PM CDT [facility] Urine (Urine, Midstream) 11/05/2023 5:31 PM CDT 11/05/2023 5:38 PM CDT Roni Ocampo P.A.-C. LAB POCT ORDERABLE S - DEVICE [address] [place] [address], [facility] CNFL [facility] in [address] [address] * ECG 12 Lead (11/05/2023 5:01 PM CDT) Ventricular Rate ECG/Min 59 BPM MUSE [place] Interval 140 ms MUSE QRSD Interval 92 ms MUSE QT Interval 402 ms MUSE QTC Interval 397 ms MUSE P [place] 31 degrees MUSE R [place] 36 degrees MUSE T Wave [place] 65 degrees MUSE 11/05/2023 5:01 PM CDT [...] NA from Last 3 Months Care Teams Digital Sales Director Relationship Specialty Start Date End Date None Reported, Pcp PCP - General Family Medicine 07/20/22
--- NOTE | 2024-01-14 11:00 | CRLHL7_ITS ---
For Patients: As a result of the Century Cures Act, medical imaging exams and procedure reports are released immediately into your electronic medical record. You may view this report before your referring provider. If you have questions, please contact your health care provider. INDICATION: Lower abdominal pain, vomiting, diarrhea TECHNIQUE: CT abdomen and pelvis without contrast. COMPARISON: None. FINDINGS: Lower chest: Bilateral breast implants. Liver: Normal in size and attenuation. No masses. Gallbladder and bile ducts: Cholecystectomy. Pancreas: Unremarkable. No mass or inflammation. Spleen: Normal in size. No masses. Adrenal glands: Normal in size. No nodules. Kidneys: Normal in size. No masses, stones, or hydronephrosis. GI tract: Unremarkable. Normal in caliber. No sign of mass or inflammation. Normal appendix. Vasculature: Unremarkable. Lymph nodes: No lymphadenopathy. Abdominal wall/Omentum/Peritoneum: Unremarkable. No sign of mass or infiltration. No free air or significant free fluid. Pelvis: Unremarkable. No pelvic masses. Bones: Unremarkable for age. IMPRESSION: No acute findings. No cause for the patient`s symptoms identified. Please note that all CT scans at this facility use dose modulation, iterative reconstruction, and/or weight-based dosing when appropriate to reduce radiation dose to as low as reasonably achievable. Dictated by Jeff Doll MD @ 01/15/2024 11:58:44 AM (Electronically Signed)
== END 2024-01-14 10:57 | disposition home or self-care (01) ==
LOC: CT 10:57
PROVIDERS: PCP Physician Assistant Medical; Visit Provider Physician Assistant Medical
DX: R10.9 Unspecified abdominal pain (principal); R19.7 Diarrhea, unspecified; R11.10 Vomiting, unspecified; G89.29 Other chronic pain
CPT/HCPCS: 74176